=== PATIENT | male | born 1940 | race Caucasian/White ===

== ENCOUNTER 2019-05-22 11:58 | Emergency (ER) | payer MEDICARE ==
[~2019-05-22] VITALS: Ht 167.6 cm; Wt 99.8 kg
[2019-05-22 12:15] VITALS: BP_SYST 131
--- NOTE | 2019-05-22 12:15 | NUR ---
Placed in room 1 . Placed on brim rounder, blood pressure machine and pulse oximeter. To gown for exam. Side rails up.
--- NOTE | 2019-05-22 12:20 | NUR ---
PT C/O SHARP CHEST PAIN, STATES IT HAS GONE FROM 10/17 YESTERDAY TO 02/16 TODAY
--- NOTE | 2019-05-22 12:24 | NUR ---
ER at bedside examining patient.
--- NOTE | 2019-05-22 12:30 | NUR ---
CXR getting done at the bedside
[2019-05-22] MEDS: ASPIRIN 81 MG TAB.CHEW PO ONE (12:36)
--- NOTE | 2019-05-22 12:45 | NUR ---
medicated the pt w/ Aspirin per MD order. Will reassess.
--- NOTE | 2019-05-22 13:20 | NUR ---
PT reports feeling better at the moment. 0/10 CP.
--- NOTE | 2019-05-22 13:25 | NUR ---
pt currently getting labs drawn at the bedside
[2019-05-22 13:30] LABS: BASOPHILS % (AUTO) 0.4 % (0.0-2.0); EOSINOPHILS # (AUTO) 0.1 K/uL (0.0-0.4); EOSINOPHILS % (AUTO) 1.3 % (0.0-4.0); HEMATOCRIT 36.1 % (36-54); HEMOGLOBIN 12.1 g/dL (14.0-18.0); LYMPHOCYTES # (AUTO) 1.5 K/uL (1.0-5.5); LYMPHOCYTES % (AUTO) 27.4 % (20.5-51.5); MEAN CORPUSCULAR HEMOGLOBIN 31 pg (27-31); MEAN CORPUSCULAR HGB CONC 33 % (32-36); MEAN CORPUSCULAR VOLUME 93 fL (79.0-98.0); MONOCYTES # (AUTO) 0.4 K/uL (0.0-1.0); MONOCYTES % (AUTO) 7.6 % (1.7-9.3); NEUTROPHILS # (AUTO) 3.4 K/uL (1.8-7.7); NEUTROPHILS % (AUTO) 63.3 % (40.0-70.0); PLATELET COUNT (AUTO) 183 K/uL (130-430); RED BLOOD CELL COUNT(AUTO) 3.91 MIL/uL (4.2-6.2); RED CELL DISTRIBUTION WIDTH 14.1 % (9.0-15.0); WHITE BLOOD COUNT (AUTO) 5.3 K/uL (4.8-10.8)
[2019-05-22 13:42] LABS: ANION GAP 7 (5-15); CALCIUM 9.4 mg/dL (8.4-11.0); CHLORIDE 104 mmol/L (98-107); CREATININE 1.42 mg/dL (0.55-1.30); GLUCOSE 165 mg/dL (70-99); POTASSIUM 4.3 mmol/L (3.5-5.1); SODIUM SERUM 136 mmol/L (136-145); UREA NITROGEN, BLOOD 27 mg/dL (8-21)
[2019-05-22 14:20] LABS: ALANINE AMINOTRANSFERASE 26 U/L (12-78); ASPARTATE AMINOTRANSFERASE 19 U/L (10-37); TOTAL BILIRUBIN 0.8 mg/dL (0.0-1.0)
[2019-05-22 14:21] LABS: ALBUMIN 3.6 g/dL (3.4-4.8)
--- NOTE | 2019-05-22 14:30 | NUR ---
pt will be transferred to [facility].
--- NOTE | 2019-05-22 16:11 | NUR ---
Report given to [facility]. Pt is in stable condition and agreeeable to the transfer
[2019-05-22 16:12] VITALS: BP_SYST 140
--- NOTE | 2019-05-22 16:15 | NUR ---
Patient to be transferred to [facility]. Is being transferred due to higher level of care. Receiving facility has accepting physician and available space. ER physician has signed transfer form. Patient or responsible republican has agreed to transfer and signed form. Patient belongings inventoried and will be sent with patient. Copy of nursing notes, lab reports, EKG, Physicians Orders and X-rays to be sent with patient. Report called to Celestino WADE at receiving facility. Receiving physician is Dr. Rod. [facility] has been called for transfer. Iv is on the left hand 20g, patent and infusing well.
== END 2019-05-22 16:12 | disposition home or self-care (01) ==
LOC: SED 11:58
DX: R07.89 Other chest pain (principal); E11.9 Type 2 diabetes mellitus without complications; I10 Essential (primary) hypertension
CPT/HCPCS: 36415; 71045; 80053; 82550-TC; 83880; 84484; 85025; 99285